=== PATIENT | male | born 1990 | race Caucasian/White ===

== ENCOUNTER 2016-06-30 05:20 | Emergency (ER) | payer OTHER ==
[2016-06-30 05:40] VITALS: BP 117/67
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
== END 2016-06-30 06:44 | disposition home or self-care (01) ==
LOC: ED 05:20
DX: F43.20 Adjustment disorder, unspecified (principal); G47.9 Sleep disorder, unspecified
CPT/HCPCS: 99282